=== PATIENT | female | born 1980 | race African-American/Black ===

== ENCOUNTER 2018-08-06 16:18 | Emergency (ER) | payer BC ==
[~2018-08-06] VITALS: Ht 165.1 cm; Wt 99.8 kg
--- NOTE | 2018-08-06 16:25 | NUR ---
ED Nurse Note: Patient walked into ED wanting to check her left knee skin not healing well, patient reports she tripped and fell on 07/27/18 patient reports 02/21 pain patient is alert awake x4 ambulatory breathing unlabored and even.
--- NOTE | 2018-08-06 16:49 | Emergency Room Report ---
History of Present Illness General Chief Complaint: Lower Extremity Injury Source: Patient Present Illness HPI 37-year-old female with no symptom past medical history here complaining of pus drainage from an abrasion on the left knee. Patient reports that she fell about a week ago however denies any pain or pain radiation. Denies tingling and numbness. Patient has been applying Band-Aid however reports that the scratch has been and having some pus drainage today. Denies fever and chills, chest pain, shortness of breath, palpitation, abdominal pain, and all other associated symptoms. She has not been taking any medication for her symptoms. Patient is up-to-date with his tetanus shot Allergies: Coded Allergies: No Known Allergies (Unverified , 08/06/18) Patient History Past Medical History: see triage record Past Surgical History: unable to obtain Pertinent Family History: none Last Menstrual Period: 08/04/18 Now: No Immunizations: UTD Reviewed Nursing Documentation: PMH: Agreed; PSxH: Agreed Nursing Documentation-PMH Past Medical History: No Stated History Review of Systems All Other Systems: negative except mentioned in HPI Physical Exam Vital Signs Date Time Temp Pulse Resp B/P (MAP) Pulse Ox O2 Delivery O2 Flow Rate FiO2 08/06/18 16:22 98.2 87 20 141/84 (103) 96 Room Air Sp02 EP Interpretation: reviewed, normal General Appearance: normal inspection, well appearing, no apparent distress, alert Head: normocephalic, atraumatic Eyes: bilateral eye normal inspection, bilateral eye PERRL ENT: normal ENT inspection, normal pharynx, no angioedema Neck: normal inspection, full range of motion, supple Respiratory: normal inspection, chest non-tender, lungs clear, no rhonchi, no wheezing Cardiovascular #1: normal inspection, regular rate, rhythm, no edema, no murmur Gastrointestinal: normal inspection, soft, no mass Genitourinary: no CVA tenderness Musculoskeletal: normal inspection, back normal, digits/nails normal Neurologic: normal inspection, alert, oriented x3, responsive Psychiatric: normal inspection, judgement/insight normal, memory normal Skin: warm/dry, abrasions - Infected aberration left knee Lymphatic: normal inspection, no adenopathy Medical Decision Making PA Attestation All my diagnosis and treatment plans were reviewed ad discussed with my supervising physician Dr. Merlos Diagnostic Impression: Primary Impression: Infected abrasion ER Course 37-year-old female with no symptom past medical history here complaining of pus drainage from an abrasion on the left knee. Patient reports that she fell about a week ago however denies any pain or pain radiation. Denies tingling and numbness. Patient has been applying Band-Aid however reports that the scratch has been and having some pus drainage today. Denies fever and chills, chest pain, shortness of breath, palpitation, abdominal pain, and all other associated symptoms. She has not been taking any medication for her symptoms. Patient is up-to-date with his tetanus shot Ddx considered but are not limited to: Infected aberration, superficial abrasion noninfected, laceration, cellulitis Vital signs: are WNL, pt. is afebrile H&PE are most consistent with: Infected aberration ORders: Keflex ED INTERVENTIONS: Wound clean and dress DISCHARGE: At this time pt. is stable for d/c to home. Will provide printed patient care instructions, and any necessary prescriptions. Care plan and follow up instructions have been discussed with the patient prior to discharge. Last Vital Signs Date Time Temp Pulse Resp B/P (MAP) Pulse Ox O2 Delivery O2 Flow Rate FiO2 08/06/18 16:22 98.2 87 20 141/84 (103) 96 Room Air Disposition: HOME, SELF-CARE Condition: Stable Scripts Cephalexin* (KEFLEX*) 500 Mg Capsule 500 MG ORAL EVERY 6 HOURS for 7 Days, #28 CAP Prov: Suzanne Mcarthur 08/06/18 Patient Instructions: Abrasion, [id number] Additional Instructions: Follow-up with a primary care provider if pain continues, keep changing the dressing, keep area clean. Take medication as directed Suzanne Mcarthur Aug 06, 2018 16:49
[2018-08-06] MEDS ORDERED: CEPHALEXIN500 MG ORAL (16:50)
[2018-08-06 17:16] VITALS: BP 141/84
--- NOTE | 2018-08-06 17:16 | NUR ---
ER DISCHARGE NOTE: Patient is cleared to be discharged per ERMD, pt is aox4, on room air, with stable vital signs. pt was given dc and prescription instructions, pt was able to verbalize understanding, pt id band removed. pt is able to ambulate with steady gait. pt took all belongings.
== END 2018-08-06 17:30 | disposition home or self-care (01) ==
LOC: EMR 17:30
DX: S80.212A Abrasion, left knee, initial encounter (principal); L08.9 Local infection of the skin and subcutaneous tissue, unspecified; W19.XXXA Unspecified fall, initial encounter; Y92.9 Unspecified place or not applicable
CPT/HCPCS: 99282